=== PATIENT | male | born 1955 | race Caucasian/White ===

== ENCOUNTER 2024-03-04 16:21 | Emergency (ER) | payer OTHER, SELFPAY ==
[2024-03-04 16:25] VITALS: BP 165/110
[2024-03-04 16:50] VITALS: BMI 37.7
--- NOTE | 2024-03-04 16:52 | ED.GENMED ---
History of Present Illness
General
Chief Complaint: Urinary Symptoms
Source: patient
Exam Limitations: none
Time Seen by Provider: 03/04/24 16:36
Nursing documentation reviewed up to this point in time: agreed with
History of Present Illness
History of Present Illness:
68-year-old male with history of HTN, HLD, NIDDM, had a kidney stone about 1.5 years ago presents stating he has had right flank pain waxing and waning over the past 6 days. He has been taking Tylenol and Naprosyn. He states the pain is now 8/10.
He denies N/V. He denies CP or SOB.
Past History
Past History
ED Past Medical History: HTN, Hypercholesterolemia, NIDDM and Other (Kidney stone)
Social History
Tobacco: Former smoker
Alcohol: Occasional
Personal: Single
Living: alone
Employment: Employed
Review of Systems
Review of Systems
Allergies reviewed?: Yes
All Other Systems: ROS reviewed and negative except as documented in HPI and ROS
Constitutional: Denies fever or chills
Respiratory: Denies trouble breathing
Cardiac: Denies chest pain
ABD/GI: Denies nausea or vomiting
: Reports flank pain (Right, starting to come around to the abdomen right lower quadrant )
Musculoskeletal: Reports no symptoms
Skin: Reports no symptoms
Neurological: Reports no symptoms
Phy Exam
Physical Exam
Physical Exam:
GENERAL: No acute distress. A&Ox3.
CONSTITUTIONAL: Afebrile.
EYES: clear, conjunctivae normal
ENMT: moist mucus membranes, Pharynx nl
RESPIRATORY: Regular respirations, nonlabored, lungs clear.
CARDIOVASCULAR: Regular rate and rhythm, no murmurs, no rubs.
GI: Soft, nontender, normal BS. R flank tenderness
MUSCULOSKELETAL: Moves with ease. Well perfused.
SKIN: Warm, dry, pink
PSYCH: Normal mood and affect. Well kept, interactive and appropriate
NEUROLOGIC: Awake, alert and oriented. No focal neurological deficits
Course
Orders/Labs/Results
Orders:
Orders
03/04/24 16:40
CT Abd/pel Without Iv Or Oral Urgent
Comment:
Reason For Exam: R flank pain
IV Insert/Care/Rem.- Treatment PRN
HYDROmorphone [Dilaudid] 1 mg IV NOW STA
Ondansetron Injectable [Zofran] 4 mg IV NOW STA
03/04/24 17:10
Complete Blood Count/With Diff Urgent
Comprehensive Metabolic Panel Urgent
Urinalysis Reflex To Culture Urgent
Date Specimen was Collected: 03/04/24
Time Specimen was Collected: 16:51
Abnormal Lab Results
03/04/24
17:10
BUN 23 H mg/dl
(9-20)
Glucose 116 H mg/dl
(70-99)
03/04/24 17:10
03/04/24 17:10
Vital Signs
Initial and Last Documented VS:
Initial Vital Signs
Temp Pulse Resp BP Pulse Ox
98.4 F 94 18 165/110 96
03/04/24 16:25 03/04/24 16:25 03/04/24 16:25 03/04/24 16:25 03/04/24 16:25
Last Documented Vital Signs
Temp Pulse Resp BP Pulse Ox
98.4 F 85 18 158/84 97
03/04/24 16:25 03/04/24 18:00 03/04/24 18:00 03/04/24 18:00 03/04/24 18:00
MDM/Problems Addressed
Differential Diagnosis Includes:
Ureteral stone, UTI, musculoskeletal pain
MDM/Problems Addressed:
68-year-old male with history of HTN, HLD, NIDDM, had a kidney stone about 1.5 years ago presents stating he has had right flank pain waxing and waning over the past 6 days. He has been taking Tylenol and Naprosyn. He states the pain is now 8/10.
He denies N/V. He denies CP or SOB.
Afebrile, NAD
6:00 p.m.
CBC normal
CMP normal
U/A normal
CT abdomen pelvis radiology report read: IMPRESSION:
No acute findings in the abdomen or pelvis, specifically no evidence of renal or ureteral calculus.
Bilateral fat-containing inguinal hernias.
Colonic diverticulosis.
6:45 p.m.
Neg w/u discussed withpt and .
Pt OOB, good ROM of torso to rotation and forward flexion with no significant pain.
Point tender deep palpation right lower back, most likely musculoskeletal pain
Pt ambulated out with normal gait at discharge
*Critical Care Note
Total Time (30-74mins, 75-104mins- exclusive of procedures): Not Applicable
ED Attending Note
-
Portions of this chart may have been created with voice recognition software.� Occasional wrong word or��sound alike� substitutions may have occurred due to the inherent limitations of voice recognition software.
Discharge Plan
Departure
Patient Disposition: Home (Routine Discharge)
Date of Disposition: 03/04/24
Time of Disposition: 18:39
Patient with high blood pressure during this ER visit?: Yes
Condition: Good
Discharge Problem:
Low back pain
Instructions: Low back pain in adults, Ketorolac (Systemic), Back Exercises, BLOOD PRESSURE
Prescriptions:
New
cyclobenzaprine 10 mg tablet
10 mg PO Q8H PRN (Reason: Pain/muscle tightness/spasm) Qty: 30 0RF
ketorolac 10 mg tablet
10 mg PO Q8H PRN (Reason: Pain) 5 Days Qty: 21 0RF
Referrals:
Franklin Baldwin MD [Family Provider] - As needed
Activity Restrictions/Additional Instructions:
As we discussed, your workup here today shows nothing worrisome
Your blood pressure is a little high, 168/84. Have it rechecked within the next couple or few days to be sure it is back to normal, if it still high, anything over 130/90, discussed with your doctor.
I sent a prescription to your pharmacy for the ketorolac (Toradol) an anti-inflammatory/analgesic for pain and for cyclobenzaprine (Flexeril) to use for muscle tightness/spasm
Do not take Naprosyn, Ibuprofen or any other antiinflammatory pain medicine while taking Toradol as they are all used for the same thing.
Flexeril can make you sleepy and slow the reflexes so do not operate any machinery or drive within 8 hours of taking it.
See your doctor in 5-7 days if not improving.
Interventions
Interventions:
*Risk Screen - Suicide Last Done: 03/04/24 16:25
*General Assessment Last Done: 03/04/24 16:25
*Neglect/Abuse Screening Last Done: 03/04/24 16:25
ED- Fall Risk Assessment Last Done: 03/04/24 17:00
*ED COVID-19 Vaccine History Last Done: 03/04/24 16:25
*Nursing Disposition Last Done: 03/04/24 19:03
ED-Male Genitourinary Assessment Last Done: 03/04/24 17:00
Discharge Date and Time
Discharge Date/Time: 03/04/24 19:05
Print Language: ESTONIAN
[2024-03-04] MEDS: DILAUDID 1 MG IV (17:08)
[2024-03-04] MEDS: ZOFRAN 4 MG IV (17:09)
[2024-03-04 17:18] LABS: % Basophils 0.6 % (0-2); % Eosinophils 5.2 % (0-6); % Immature Granulocytes 0.2 % (0-0.5); % Lymphocytes 23.7 % (20.5-51.1); % Monocytes 6.7 % (1.7-9.3); % Neutrophils 63.6 % (42.2-75.2); Absolute Basophils 0.1 10^3/uL (0-0.2); Absolute Eosinophils 0.5 10^3/uL (0-0.7); Absolute Lymphocytes 2.1 10^3/uL (1.2-3.4); Absolute Monocytes 0.6 10^3/uL (0.1-0.6); Absolute Neutrophils 5.5 10^3/uL (1.4-6.5); Hematocrit 44.4 % (39.0-52.0); Hemoglobin 15.3 g/dL (13.0-18.0); Mean Corp Hgb Conc. 34.5 g/dL (33.0-37.0); Mean Corpuscular Hgb 29.9 pg (27.0-31.0); Mean Corpuscular Volume 86.9 fL (80.0-94.0); Mean Platelet Volume 9.9 fL (7.4-10.4); Nucleated Red Blood Cells % 0 % (-); Platelet Count 251 10^3/uL (130-400); Red Blood Cell Count 5.11 10^6/uL (4.70-6.10); Red Cell Dist. Width 12.8 % (11.5-14.5); White Blood Cell Count 8.7 10^3/uL (4.8-10.8)
[2024-03-04 17:19] LABS: Urine Albumin Negative (Neg - Trace); Urine Bilirubin Negative (Negative); Urine Character Clear (Clear); Urine Color Yellow; Urine Glucose Negative (Negative); Urine Ketone Negative (Negative); Urine Leukocyte Negative (Negative); Urine Nitrite Negative (Negative); Urine Occult Blood Negative (Negative); Urine Specific Gravity 1.025 (<1.030); Urine Urobilinogen Negative (Neg - 1+)
[2024-03-04 17:31] LABS: ALT (SGPT) 26 U/L (0-50); AST (SGOT) 23 U/L (17-59); Albumin 4.5 g/dl (3.5-5.0); Alkaline Phosphatase 93 U/L (38-126); Blood Urea Nitrogen 23 mg/dl (9-20); Calcium 10.2 mg/dl (8.4-10.2); Carbon Dioxide 29 mmol/L (22-30); Chloride 99 mmol/L (98-107); Estimated Creatinine Clearance > 125 ml/min; Glucose 116 mg/dl (70-99); Potassium 4.5 mmol/L (3.5-5.1); Sodium 140 mmol/L (135-145); Total Bilirubin 1.1 mg/dl (0.2-1.3); Total Protein 7.6 g/dl (6.3-8.2); eGFR > 60.00
[2024-03-04 18:00] VITALS: BP 158/84
== END 2024-03-04 19:05 | disposition home or self-care (01) ==
LOC: EMR 16:21
PROVIDERS: Registered Nurse; EMERGENCY PHYSICIAN Student in an Organized Health Care Education/Training Program; FAMILY PHYSICIAN Family Medicine
DX: M54.50 Low back pain, unspecified (principal); R10.9 Unspecified abdominal pain; K40.20 Bilateral inguinal hernia, without obstruction or gangrene, not specified as recurrent; K57.30 Diverticulosis of large intestine without perforation or abscess without bleeding; I10 Essential (primary) hypertension; E11.9 Type 2 diabetes mellitus without complications; E78.00 Pure hypercholesterolemia, unspecified; F41.9 Anxiety disorder, unspecified; Z87.442 Personal history of urinary calculi; Z87.891 Personal history of nicotine dependence; Z88.0 Allergy status to penicillin
CPT/HCPCS: 99284; 96374; 96375; 74176; 80053; 81003; 85025